=== PATIENT | male | born 2000 | race African-American/Black ===

== ENCOUNTER 2022-05-27 16:42 | Emergency (ER) | payer SELFPAY ==
[2022-05-27] MEDS ORDERED: Azithromycin 250 MG TAB ONE (17:22)
[2022-05-27] MEDS ORDERED: cefTRIAXone\\ROCEPHIN 500 MG VIAL ONE (17:22)
[2022-05-27 17:28] LABS: Bilirubin Neg (Negative); Blood, Urine Negative (Negative); Clarity Clear (Clear); Glucose, Urine (Dipstick) Normal (Negative); Ketone, Urine Negative (Negative); Leukocyte Negative (Negative); Nitrite Negative (Negative); Protein, Urine (Dipstick) Negative (Neg-Trace); Specific Gravity, Urine 1.005 (1.005-1.030); Urobilinogen Normal mg/dL (Less than 2)
[2022-05-28 11:44] LABS: Chlam.trachomatis by PCR,Urine Not Detected (NotDetected); GC N.gonorrhoeae PCR,UrineVOID Not Detected (NotDetected)
== END 2022-05-27 17:54 | disposition home or self-care (01) ==
LOC: CSHERS 16:42
DX: N34.2 Other urethritis (principal)
CPT/HCPCS: 81003; 87491; 87591; 96372; 99283; J0696

== ENCOUNTER 2022-06-11 23:11 | Emergency (ER) | payer SELFPAY ==
[2022-06-12] MEDS ORDERED: cefTRIAXone\\ROCEPHIN 500 MG VIAL ONE (00:55)
[2022-06-12] MEDS ORDERED: Sterile Water 10 ML ONE (00:56)
[2022-06-12 01:29] LABS: Bilirubin Neg (Negative); Blood, Urine Negative (Negative); Clarity Clear (Clear); Glucose, Urine (Dipstick) Normal (Negative); Ketone, Urine 5 mg/dL (Negative); Leukocyte Negative (Negative); Nitrite Negative (Negative); Protein, Urine (Dipstick) Negative (Neg-Trace); Urobilinogen Normal mg/dL (Less than 2)
[2022-06-12 21:27] LABS: Chlam.trachomatis by PCR,Urine Not Detected (NotDetected); GC N.gonorrhoeae PCR,UrineVOID Not Detected (NotDetected)
== END 2022-06-12 01:55 | disposition home or self-care (01) ==
LOC: CSHERS 23:11
DX: N34.1 Nonspecific urethritis (principal)
CPT/HCPCS: 81003; 87086; 87491; 87591; 96372; 99284; J0696

== ENCOUNTER 2022-07-19 07:55 | Emergency (ER) | payer SELFPAY ==
[2022-07-19] MEDS ORDERED: cefTRIAXone (ROCEPHIN) 500 MG VIAL ONE (08:15)
[2022-07-19 15:26] LABS: Chlam.trachomatis by PCR,Urine Not Detected (NotDetected); GC N.gonorrhoeae PCR,UrineVOID Not Detected (NotDetected)
== END 2022-07-19 08:43 | disposition home or self-care (01) ==
LOC: CSHERS 07:55
DX: R36.9 Urethral discharge, unspecified (principal); R30.0 Dysuria
CPT/HCPCS: 87491; 87591; 96372; 99283; J0696

== ENCOUNTER 2022-09-26 18:07 | Emergency (ER) | payer SELFPAY ==
[2022-09-26 19:32] LABS: Bilirubin Neg (Negative); Blood, Urine Negative (Negative); Clarity Clear (Clear); Glucose, Urine (Dipstick) Normal (Negative); Ketone, Urine Negative (Negative); Leukocyte Negative (Negative); Nitrite Negative (Negative); Protein, Urine (Dipstick) Negative (Neg-Trace); Specific Gravity, Urine 1.005 (1.005-1.030); Urobilinogen Normal mg/dL (Less than 2)
[2022-09-26 19:52] LABS: Bacteria/HPF None Seen HPF (None Seen); CAUTI Indications for Culture Dysuria,urgency,freq; RBC/HPF None Seen HPF (0-3); Squamous Epithelial None Seen HPF (0-3); WBC/HPF None Seen HPF (0-3)
[2022-09-26 19:53] LABS: Urine Culture Reflex No No
[2022-09-27 19:21] LABS: Chlam.trachomatis by PCR,Urine Not Detected (NotDetected); GC N.gonorrhoeae PCR,UrineVOID Not Detected (NotDetected)
== END 2022-09-26 20:39 | disposition home or self-care (01) ==
LOC: CSHERS 18:07
DX: R30.0 Dysuria (principal)
CPT/HCPCS: 81001; 87491; 87591; 99284

== ENCOUNTER 2022-12-24 21:38 | Emergency (ER) | payer SELFPAY ==
[2022-12-24] MEDS ORDERED: Lidocaine 1% PF 5 ML VIAL ONE (22:58)
[2022-12-24] MEDS ORDERED: cefTRIAXone (ROCEPHIN) 500 MG VIAL ONE ×2 (22:58→23:05)
[2022-12-24 23:22] LABS: Bilirubin Neg (Negative); Blood, Urine Negative (Negative); Clarity Clear (Clear); Glucose, Urine (Dipstick) Normal (Negative); Ketone, Urine 5 mg/dL (Negative); Leukocyte Negative (Negative); Nitrite Negative (Negative); Protein, Urine (Dipstick) 30 mg/dl (Neg-Trace); pH, Urine 6.5 (5.0-9.0)
[2022-12-24 23:37] LABS: Bacteria/HPF 2+ HPF (None Seen); CAUTI Indications for Culture Pelvic or flank pain; RBC/HPF 0-3 HPF (0-3); Squamous Epithelial 0-3 HPF (0-3); WBC/HPF 0-3 HPF (0-3)
[2022-12-24 23:38] LABS: Mucous/LPF 2+ LPF (<2+)
[2022-12-24 23:39] LABS: Urine Culture Reflex No No
[2022-12-25 14:50] LABS: Chlam.trachomatis by PCR,Urine Not Detected (NotDetected); GC N.gonorrhoeae PCR,UrineVOID Not Detected (NotDetected)
== END 2022-12-24 23:33 | disposition home or self-care (01) ==
LOC: CSHERS 21:38
DX: S00.83XA Contusion of other part of head, initial encounter (principal); N50.82 Scrotal pain; W22.8XXA Striking against or struck by other objects, initial encounter
CPT/HCPCS: 81001; 87491; 87591; 96372; 99284; J0696

== ENCOUNTER 2025-03-18 17:10 | Emergency (ER) | payer SELFPAY ==
[2025-03-18] MEDS ORDERED: cefTRIAXone (ROCEPHIN) 500 MG VIAL ONE (18:00)
[2025-03-18] MEDS ORDERED: metroNIDAZOLE 500 MG TAB ONE (18:00)
[2025-03-18 18:13] LABS: Glucose, Urine (Dipstick) Normal (Negative); Leukocyte Negative (Negative); Protein, Urine (Dipstick) 15 mg/dl (Neg-Trace); Specific Gravity, Urine 1.010 (1.005-1.030)
[2025-03-18 18:22] LABS: Bacteria/HPF Rare-Few HPF (None Seen); CAUTI Indications for Culture Dysuria,urgency,freq; RBC/HPF None Seen HPF (0-3); WBC/HPF None Seen HPF (0-3)
[2025-03-18 18:23] LABS: Urine Culture Reflex No No
[2025-03-18 23:41] LABS: Chlam.trachomatis by PCR,Urine Not Detected (NotDetected); GC N.gonorrhoeae PCR,UrineVOID Not Detected (NotDetected)
== END 2025-03-18 19:10 | disposition home or self-care (01) ==
LOC: CSHERS 17:10
DX: R30.0 Dysuria (principal)
CPT/HCPCS: 81001; 87491; 87591; 96372; 99283; J0696